=== PATIENT | female | born 1975 | race Caucasian/White ===

== ENCOUNTER 2016-03-15 22:52 | Emergency (ER) | payer OTHER ==
[2016-03-15] MEDS ORDERED: DICYCLOMINE 20MG/2ML VIAL IM ONE (23:49)
[2016-03-15] MEDS ORDERED: ONDANSETRON 4 MG VIAL ONE (23:50)
[2016-03-15] MEDS ORDERED: SODIUM CHLORIDE 0.9% 1,000 ML ONE (23:50)
[2016-03-16] MEDS ORDERED: METOCLOPRAMIDE 10 MG/2 ML VIAL ONE (02:37)
[2016-03-16] MEDS ORDERED: DIPHENHYDRAMINE 50 MG/ML VIAL ONE (02:38)
== END 2016-03-16 03:09 | disposition home or self-care (01) ==
LOC: ER 22:52
DX: R10.33 Periumbilical pain (principal); R11.2 Nausea with vomiting, unspecified; Z79.899 Other long term (current) drug therapy
CPT/HCPCS: 36415; 74022; 80053; 81001; 83690; 85025; 87088; 96361; 96372; 96374; 96375; 99285; J0500; J2405